=== PATIENT | male | born 1995 | race Caucasian/White ===

== ENCOUNTER 2018-12-15 14:10 | Emergency (ER) | payer SELFPAY ==
[~2018-12-15 14:10] MED LIST: ATO10 PO; ESCI5TAB10 PO; METH18TA12 PO; NO RTN MEDS; RISP0.5T82 PO
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
[2018-12-15] MEDS ORDERED: oxyCODON/ACET (*)5/325MG (CII) 1 TAB TAB PO ONE (14:30)
[2018-12-15] MEDS ORDERED: DIPHTH/TETANUS/ACEL. PERTUSSIS IM ONLY ONE (14:30)
[2018-12-15 14:49] VITALS: BP 135/72
[2018-12-15] MEDS ORDERED: OXYC-865 PO (14:51)
--- NOTE | 2018-12-15 15:12 | RADIOLOGY IMAGING REPORT ---
FACILITY: [facility] PATIENT NAME: Stoney Buenrostro : 1995 MR: [id number] V: [id number] EXAM DATE: ORDERING PHYSICIAN: MAVIS KAMARA TECHNOLOGIST: Location: [facility] [place] Patient: Stoney Buenrostro : 1995 Visit/Account:[id number] Date of Sevice: 12/15/2018 CLAVICLE RIGHT, SHOULDER MIN 2 VIEWS RIGHT COMPARISON: None. HISTORY: pain TECHNIQUE: 2 views of the right clavicle, three views right shoulder FINDINGS: BONES: Acute comminuted fracture of the distal clavicle shaft, with 2 1/2 bone shaft widths of cauda l displacement of the most distal fracture fragment. There is an intervening 3 cm length butterfly f racture fragment with about 90 degrees of caudal angulation. AC joint and glenohumeral joint are int act and normally aligned. No significant arthropathy. Visualized right ribs are intact. SOFT TISSUES: Negative. No visible soft tissue swelling. OTHER: Negative. IMPRESSION: Acute comminuted fracture of the right distal clavicle shaft. Report Dictated By: Jaden Cm at 12/15/2018 3:03 PM Report E-Signed By: Jaden Cm at 12/15/2018 3:06 PM WSN:[id number]
--- NOTE | 2018-12-15 15:13 | RADIOLOGY IMAGING REPORT ---
FACILITY: [facility] PATIENT NAME: Stoney Buenrostro : 1995 MR: [id number] V: [id number] EXAM DATE: ORDERING PHYSICIAN: MAVIS KAMARA TECHNOLOGIST: Location: [facility] Patient: Stoney Buenrostro : 1995 Visit/Account:[id number] Date of Sevice: 12/15/2018 CLAVICLE RIGHT, SHOULDER MIN 2 VIEWS RIGHT COMPARISON: None. HISTORY: pain TECHNIQUE: 2 views of the right clavicle, three views right shoulder FINDINGS: BONES: Acute comminuted fracture of the distal clavicle shaft, with 2 1/2 bone shaft widths of cauda l displacement of the most distal fracture fragment. There is an intervening 3 cm length butterfly f racture fragment with about 90 degrees of caudal angulation. AC joint and glenohumeral joint are int act and normally aligned. No significant arthropathy. Visualized right ribs are intact. SOFT TISSUES: Negative. No visible soft tissue swelling. OTHER: Negative. IMPRESSION: Acute comminuted fracture of the right distal clavicle shaft. Report Dictated By: Jaden Cm at 12/15/2018 3:03 PM Report E-Signed By: Jaden Cm at 12/15/2018 3:06 PM WSN:[id number]
--- NOTE | 2018-12-15 15:14 | RADIOLOGY IMAGING REPORT ---
FACILITY: [facility] PATIENT NAME: Stoney Buenrostro : 1995 MR: [id number] V: [id number] EXAM DATE: ORDERING PHYSICIAN: MAVIS KAMARA TECHNOLOGIST: Location: [facility] Patient: Stoney Buenrostro : 1995 Visit/Account:[id number] Date of Sevice: 12/15/2018 ELBOW 3 VIEW RIGHT COMPARISON: None. HISTORY: pain TECHNIQUE: 3 views of the right elbow. FINDINGS: BONES: No significant arthropathy, fracture, malalignment, or significant osseous lesion. Elbow ali gnment is within normal limits. SOFT TISSUES: Negative. No visible soft tissue swelling. EFFUSION: No significant distal humeral fat pad displacement to suggest the presence of a joint effu dottie. OTHER: Negative. No radiopaque foreign bodies. IMPRESSION: Unremarkable right elbow. No acute fracture or malalignment. Report Dictated By: Jaden Cm at 12/15/2018 3:06 PM Report E-Signed By: Jaden Cm at 12/15/2018 3:07 PM WSN:[id number]
== END 2018-12-15 15:05 | disposition home or self-care (01) ==
LOC: ER 14:21
DX: S42.031A Displaced fracture of lateral end of right clavicle, initial encounter for closed fracture (principal); V19.9XXA Pedal cyclist (driver) (passenger) injured in unspecified traffic accident, initial encounter
CPT/HCPCS: 73000; 73030; 73080; 90471; 90715; 99284; A4565

== ENCOUNTER 2018-12-21 04:08 | Day surgery (SDC) | payer SELFPAY ==
[~2018-12-21] VITALS: Ht 172.7 cm; Wt 107.0 kg
[~2018-12-21 04:08] MED LIST changes: +OXYC-865 PO
[2018-12-21] MEDS ORDERED: DEXAMETHASONE SOD 4 MG/ML VIAL ONE (10:20)
[2018-12-21] MEDS ORDERED: LIDOCAINE MPF 1% 5 ML VIAL ONE (10:20)
[2018-12-21] MEDS ORDERED: PROPOFOL EMUL(*) 10MG/ML 20 ML 20 ML ONE (10:20)
[2018-12-21] MEDS ORDERED: ONDANSETRON 4 MG/2 ML VIAL ONE (10:20)
[2018-12-21] MEDS ORDERED: ROCURONIUM BROM 10 MG/ML 10 ML ONE (10:20)
[2018-12-21] MEDS ORDERED: SUGAMMADEX SOD 200 MG/2 ML SDV ONE (10:20)
[2018-12-21] MEDS ORDERED: fentaNYL CITR 250 MCG/5 ML AMP ONE (10:20)
[2018-12-21] MEDS ORDERED: KETAMINE HCL 200 MG/20 ML MDV ONE (10:25)
[2018-12-21 11:18] VITALS: BP 151/90
[2018-12-21] MEDS ORDERED: MIDAZOLAM 2 MG/2 ML VIAL IVP PRN (11:30)
[2018-12-21] MEDS ORDERED: ceFAZolin(*) 2GM/D5W 50ML 50 ML IVPB ONE (11:30)
[2018-12-21] MEDS ORDERED: NORMOSOL R SOLN(*) 1000 ML BAG 1,000 ML IV PRN (11:30)
[2018-12-21] MEDS ORDERED: FAMOTIDINE 20 MG TAB PO ONE (11:30)
[2018-12-21] MEDS ORDERED: LIDOCAINE/SOD BICARB 8.4% SYR ID ONE (11:30)
[2018-12-21] MEDS ORDERED: CELECOXIB 200 MG CAP PO ONE (11:30)
[2018-12-21] MEDS ORDERED: ROPIVACAINE 0.2% 20 ML VIAL ONE (11:39)
[2018-12-21] MEDS ORDERED: fentaNYL CITR 100 MCG/2 ML AMP ONE ×2 (13:40→14:36)
--- NOTE | 2018-12-21 14:17 | RADIOLOGY IMAGING REPORT ---
FACILITY: [facility] PATIENT NAME: Stoney Buenrostro : 1995 MR: [id number] V: [id number] EXAM DATE: ORDERING PHYSICIAN: TRENT DASH TECHNOLOGIST: Location: [facility] Patient: Stoney Buenrostro : 1995 Visit/Account:[id number] Date of Sevice: 12/21/2018 Technique: C-ARM FLUORO 1 HR HISTORY: RIGHT CLAVICLE ORIF Comparison studies: December 15, 2018 FINDINGS: Operative imaging was obtained right clavicle. Plate and screw fixation traverses a distal shaft clavicular fracture. . Air Kerma: 0.8 mGy IMPRESSION: 1. Operative imaging as above. Please see procedural report for complete details. Report Dictated By: Kei Hernandez DO at 12/21/2018 2:11 PM Report E-Signed By: Kei Hernandez DO at 12/21/2018 2:12 PM WSN:[id number]
[2018-12-21] MEDS ORDERED: KET10 PO (14:45)
[2018-12-21] MEDS ORDERED: TRAM-420 PO (14:48)
[2018-12-21] MEDS ORDERED: OXYC5TAB38 PO (14:50)
[2018-12-21] MEDS ORDERED: oxyCODONE HCL 5 MG CAP ONE (14:58)
[2018-12-21] MEDS ORDERED: KETOROLAC TROM 10MG TAB PO ONE (15:05)
[2018-12-21 15:30] VITALS: BP 144/84
[2018-12-21 16:02] VITALS: BP 151/96
[2018-12-21 16:04] VITALS: BP 160/101
--- NOTE | 2018-12-21 18:04 | NUR ---
1530- pt. received from [facility] via stretcher with the siderails up. sbar received from adry tam. see admissions assessment. 1535- mother brought to bedside. 1540- turned pt o2 down to 2lpm nc 1602- pt. states that he needs to use the bathroom so orthostatics preformed. 1606- pt. to the bathroom. 1626- pt. o2 turned down to 1lpm nc. 1629- pt. given IS and taught how to use. pt. also states that his throat is sore so hot tea provided. 1640- pt. returned to room air and another cup of hot tea given. 1650- pt. o2 dropped to 87 % on room air. pt. instructed to cough and deep breath and o2 back up to 93% 1700- pt. o2 dropped to 84% so placed on 1lpm nc and pt. back up to 93 [address] dr. leonard informed and he stated that he wanted the pt. to go home on 1lpm nc o2 until his follow-up appt on friday12/23/18. 1710- pt. informed of this and he is worried about cost so i called around to get the best prices for him. 1730- [facility] called to be his home o2 provider and iv taken out and pressure dressing applied. 1732- pt. getting dressed. 1740- discharge instructions gone over with pt and mother. understanding stated and all questions answered. 1750- [facility] at bedside. 1800- pt. accompanied out to vehicle via wheelchair accompanied by amanda tam and mother. see discharge assessment.
--- NOTE | 2018-12-22 04:11 | OPERATIVE REPORT 1 ---
EVENT DATE: December 21, 2018 SURGEON: Terrance Watkins MD ANESTHESIOLOGIST: Stanley Jean MD ANESTHESIA: General. JACK MACHINE OPERATOR: Sonny Francisco PA-C PREOPERATIVE DIAGNOSIS Right midshaft clavicle fracture with displacement and comminution. POSTOPERATIVE DIAGNOSIS Right midshaft clavicle fracture with displacement and comminution. PROCEDURE PERFORMED Right clavicle open reduction and internal fixation. IMPLANTS USED Figueroa and Nephew clavicular system with an eight-hole plate, two 2.7 mm screws, three bicortical 3.5 mm screws and three 3.5 mm locking screws. SPECIMENS None. COMPLICATIONS None. BLOOD LOSS Less than 5 mL. DESCRIPTION OF PROCEDURE Patient was brought to the OR, and Dr. Jean performed general anesthesia. Patient was then placed in beach-chair position with appropriate padding and positioners. Prior to prep, we localized the clavicle fracture with the C-arm. I then prepped the right upper extremity and chest in the usual sterile fashion. I then made an incision centered over the anterior aspect of the fracture. We then achieved hemostasis as we went and dissected directly down to bone between the trapezial/deltoid interval. We identified the medial shaft first, then the bony butterfly fragment, where there was some comminution, and then the lateral shaft piece. We noticed some fragmentation at the fracture site, with small amounts of bone which were saved for later graft. Once we irrigated and curetted the hematoma and early healing products, we were then able to bring the major butterfly fragment in with the lateral shaft, and then we reduced this to the medial aspect and then placed an eight-hole plate on top of it, setting the two center holes over the fracture site. Starting laterally, we placed one locking screw in the center of the lateral three holes in the usual standard fashion. In the center hole of the lateral three holes, we then placed a fully threaded 3.5 mm nonthreaded screw in a compression fashion to achieve compression across the fracture site. We then went laterally again and placed a standard 3.5 mm screw in the most distal hole. We then came medially and placed in the most lateral of the medial three holes a 3.5 mm locking screw, and in the most medial hole was a standard 3.5 mm bicortical screw. Coming back laterally, we then placed a locking screw in the most medial of the lateral three holes. Through the medial two holes, I was able to put 2.7 mm screws to lag the butterfly fragment to further stabilize this. Where there was comminution across the fracture, we placed bone that we were able to harvest. We then visualized this fluoroscopically and were satisfied with reduction and placement of hardware. We put fluid in the wound, performed a Valsalva maneuver, which was negative for any air. We then copiously irrigated, closed the deep deltoid/trapezial fascial interval with 0 Vicryl suture, followed by 3-0 Vicryl for subcutaneous tissues and running 4-0 subcuticular Monocryl for skin. The wound was infiltrated with ropivacaine, dried, and we placed Steri-Strips and a dressing. Patient was extubated and taken to recovery in stable condition. Ice, non- weightbearing, sling as prescribed. Tylenol, Toradol, tramadol, and OxyIR recommended for pain. We will see him in two days for followup of the wounds. NOREEN
== END 2018-12-21 15:30 | disposition home or self-care (01) ==
LOC: OR 04:08
PROVIDERS: ATTEND Orthopaedic Surgery
DX: S42.021A Displaced fracture of shaft of right clavicle, initial encounter for closed fracture (principal)
CPT/HCPCS: 23515; 76000; J1100; J2001; J2250; J2405; J2704; J2795; J3010; J3490; A4565; J0690